=== PATIENT | female | born 1950 | race Caucasian/White ===

== ENCOUNTER → 2017-05-11 | Outpatient (CLI) | payer MEDICARE ==
[~2017-05-11] MED LIST: APIX5TAB PO; CARV-39 PO; CEPH-368 PO; HYDR-3307 PO; LISI5TAB7 PO; PRAV40TA2 PO
== END ==
LOC: CFH 14:06
PROVIDERS: ATTEND Internal Medicine Cardiovascular Disease
DX: I08.1 Rheumatic disorders of both mitral and tricuspid valves (principal); I11.0 Hypertensive heart disease with heart failure; I50.22 Chronic systolic (congestive) heart failure; Z95.1 Presence of aortocoronary bypass graft; Z95.810 Presence of automatic (implantable) cardiac defibrillator
CPT/HCPCS: 93306

== ENCOUNTER 2019-12-17 15:31 | Outpatient (CLI) | payer MEDICARE ==
[~2019-12-17 15:31] MED LIST changes: +HYDR-3246 PO; -HYDR-3307 PO
== END 2019-12-17 23:59 | disposition home or self-care (01) ==
LOC: CFH 15:31
PROVIDERS: ATTEND Internal Medicine Cardiovascular Disease
DX: I08.0 Rheumatic disorders of both mitral and aortic valves (principal); I11.9 Hypertensive heart disease without heart failure; I25.5 Ischemic cardiomyopathy
CPT/HCPCS: 93306